=== PATIENT | male | born 1970 ===

== ENCOUNTER 2021-02-02 12:16 | Outpatient (CLI) | payer OTHER, SELFPAY ==
--- NOTE | ~2021-02-02 | XR_ITS ---
EXAMINATION: XR lumbar spine min 4V, XR sacroiliac joints min 3V DATE: 02/02/2021 12:38 INDICATION: Chronic left-sided low back pain without sciatica TECHNIQUE: 1. Anteroposterior, lateral, and bilateral oblique views of the lumbar spine, and cone-down lateral v iew of the lumbosacral junction were obtained. 2. AP and left and right oblique views of the sacral iliac joints were obtained. COMPARISON: None. FINDINGS: Lumbar spine: 7 degrees lumbar dextrocurvature. Sagittal alignment is normal. Chronic appearing minimal to mild ant erior wedging with <20% anterior vertebral body height loss at T11-L2. Disc heights are normal. Minim al to mild facet osteoarthritis throughout the lumbar spine. No pars interarticularis defects. Sacroiliac joints: Osteoarthritis with minimal nonuniform joint space narrowing at the bilateral sacral iliac joints. No subarticular sclerosis or erosions to suggest an inflammatory synovitis. There are small marginal os teophytes which appear bridging or nearly bridging at the cephalad-most aspect of both the left and r ight sacroiliac joints. Sacral arches appear intact. No fracture. Bilateral hip joint spaces are rela tively preserved. IMPRESSION: 1. Mild lumbar dextrocurvature with minimal spondylosis. 2. Chronic appearing minimal to mild anterior wedging at T11-L2. 3. Minimal bilateral sacral iliac osteoarthritis. Reviewed, dictated and finalized at location A. IMPRESSION: 1. Mild lumbar dextrocurvature with minimal spondylosis. 2. Chronic appearing minimal to mild anterior wedging at T11-L2. 3. Minimal bilateral sacral iliac osteoarthritis.
== END 2021-02-02 12:17 | disposition home or self-care (01) ==
LOC: ANHIMG 12:23
PROVIDERS: PCP Family Medicine; Visit Provider Family Medicine
DX: M54.5 Low back pain (principal); G89.29 Other chronic pain
CPT/HCPCS: 72110; 72202